=== PATIENT | male | born 1995 | race Caucasian/White ===

== ENCOUNTER 2021-11-29 19:18 | Observation (INO) ==
[2021-11-29] MEDS ORDERED: 0.9 % Sodium Chloride 1,000 ML IV ONE (19:46)
[2021-11-29] MEDS ORDERED: Piperacillin/Tazobactam 3.375 GM in 0.9 % Sodium Chloride Mini Bag 100 ML IVP ONE (19:46)
[2021-11-29] MEDS ORDERED: Ondansetron 4 MG/2 ML VIAL IVP PRN (21:18)
[2021-11-29] MEDS ORDERED: 0.9 % Sodium Chloride 1,000 ML IVC SCH (21:30)
[2021-11-29] MEDS: Acetaminophen IV 1,000 MG/100 ML BAG IVPB SCH (23:44)
[2021-11-29] MEDS: Piperacillin/Tazobactam 3.375 GM in 0.9 % Sodium Chloride Mini Bag 100 ML IVPB SCH (23:46)
[2021-11-30] MEDS: Acetaminophen IV 1,000 MG/100 ML BAG IVPB SCH (06:26)
[2021-11-30] MEDS: Piperacillin/Tazobactam 3.375 GM in 0.9 % Sodium Chloride Mini Bag 100 ML IVPB SCH (07:30)
[2021-11-30] MEDS ORDERED: Lidocaine HCL 4 ML Topical Solution (Laryng-O-Jet Kit Sterile Pak) TP ONE (07:39)
[2021-11-30] MEDS ORDERED: Ondansetron 4 MG/2 ML VIAL ONE (07:39)
[2021-11-30] MEDS ORDERED: Lidocaine -MPF 2% 5 ML VIAL ONE (07:39)
[2021-11-30] MEDS ORDERED: *HR* Rocuronium Bromide 50 MG/5 ML VIAL ONE (07:39)
[2021-11-30] MEDS ORDERED: *HR* FentaNYL (PF) 100 MCG/2 ML VIAL ONE ×2 (07:40→09:17)
[2021-11-30] MEDS ORDERED: *HR* Midazolam HCl 2 MG/2 ML VIAL ONE (07:40)
[2021-11-30] MEDS ORDERED: *HR* Propofol 200 MG/20 ML VIAL IVP ONE ×2 (07:40→09:10)
[2021-11-30] MEDS ORDERED: *HR* HYDROmorphone PF 0.5 MG/0.5 ML SYRINGE IVP PRN (08:39)
[2021-11-30] MEDS ORDERED: *HR* HYDROMORPHONE 2 MG/ML VIAL ONE (09:17)
[2021-11-30] MEDS ORDERED: Ketorolac 30 MG/ML VIAL ONE (09:17)
[2021-11-30] MEDS ORDERED: Ondansetron 4 MG/2 ML VIAL IVP PRN (11:37)
[2021-11-30] MEDS ORDERED: *HR* OxyCODONE/APAP 5/325 TABLET PO PRN (11:37)
[2021-11-30] MEDS ORDERED: Ketorolac 30 MG/ML VIAL IVP SCH (12:00)
[2021-11-30] MEDS ORDERED: Piperacillin/Tazobactam 3.375 GM in 0.9 % Sodium Chloride Mini Bag 100 ML IVPB SCH (13:00)
[2021-11-30 15:29] VITALS: BP 145/73; PULSE 78; TEMP 97.3; O2SAT 96
== END 2021-11-30 18:58 | disposition home or self-care (01) ==
LOC: 3ANU 19:18 → EMEROOARM 19:18 → 3ANU 20:18
PROVIDERS: ADMIT Surgery; ATTEND Surgery